=== PATIENT | female | born 1980 | race Caucasian/White ===

== ENCOUNTER 2022-06-06 20:45 | Emergency (ER) | payer SELFPAY ==
[2022-06-06 21:13] VITALS: BP 108/69
== END 2022-06-07 01:20 | disposition left against medical advice (07) ==
LOC: ED 20:45
DX: R06.02 Shortness of breath (principal); R05.9 Cough, unspecified; Z53.21 Procedure and treatment not carried out due to patient leaving prior to being seen by health care provider